=== PATIENT | female | born 1955 | race Caucasian/White ===

== ENCOUNTER → 2017-06-18 | Outpatient (CLI) | payer MEDICARE ==
[~2017-06-18] MED LIST: AMIO0.1T PO; ASPI1TAB69 PO; BACL10TA PO; CIME200T23 PO; ERGO1CAP30 PO; HYDR-2374 PO; HYDR50TA15 PO; MORP1TAB25 PO; MULT-135 PO; OMEP20TA PO; PROM25TA5 PO
[2017-06-18 12:06] LABS: BLOOD GAS BASE EXCESS 2.2 mmol/L (-2-2); BLOOD GAS CARBOXYHEMOGLOBIN 5.9 % (0-4); BLOOD GAS HCO3 26 mmol/L (22-26); BLOOD GAS METHEMOGLOBIN 1.3 % (0-2); BLOOD GAS O2 HGB SATURATION 90 % (90-100); BLOOD GAS OXYGEN CONTENT 18.3 Vol % (12.0-20.0); BLOOD GAS PCO2 38 mmHg (38-42); BLOOD GAS PO2 87 mmHg (61-120); BLOOD GAS TOTAL HGB 14.3 G/DL (12.0-16.0); TEMP CORR TO 98.6
[2017-06-18 12:09] LABS: CRITICAL VALUE YES; DRAW SITE RT RADIAL; FIO2 21 %; NUMBER OF ARTERIAL PUNCTURES 1; STAT NO; ULNAR PULSE PRESENT
--- NOTE | 2017-06-21 10:21 | RSPPFT ---
DATE OF PROCEDURE: 06/18/17 COMMENTS: Spirometry shows FVC of 2.3 at 79% of predicted, FEV1 of 2.0 at 86%, FEV1/FVC ratio is normal. Flow is normal at FEF 25, FEF 50, FEF 75 and FEF 25-75. There is no response after bronchodilator treatment. Lung volumes show residual volume is normal. TLC is normal. Diffusion capacity is normal. Flow volume loop indicates a normal pattern. Room air arterial blood gases show pH of 7.45, PCO2 of 38, PO2 of 87, BiCarb of 26 and O2 Saturation at 90%. IMPRESSION: 1. Normal spirometry. 2. No response after bronchodilator treatment. 3. Normal lung volumes. 4. Normal diffusion capacity. 5. Blood gases show normal oxygenation.
== END ==
LOC: HRSP 10:58
PROVIDERS: ATTEND Specialist
DX: R06.00 Dyspnea, unspecified (principal)
CPT/HCPCS: 36600; 82805; 94060; 94726; 94729